=== PATIENT | male | born 1990 | race Caucasian/White ===

== ENCOUNTER 2023-03-02 09:53 | Emergency (ER) | payer SELFPAY ==
[~2023-03-02] VITALS: Ht 177.8 cm; Wt 78.0 kg
[2023-03-02 09:59] VITALS: TEMP 98.1; O2SAT 100
[2023-03-02] MEDS ORDERED: IBUPROFEN 400MG TABLET PO ONE (11:30)
[2023-03-02] MEDS ORDERED: T3 PO (11:31)
[2023-03-02] MEDS ORDERED: IBUP-2028 PO (11:31)
[2023-03-02 11:43] VITALS: BP 121/82; PULSE 91; RESP 16
== END 2023-03-02 11:44 | disposition home or self-care (01) ==
LOC: ER 09:53
DX: M79.605 Pain in left leg (principal)
CPT/HCPCS: 72170; 73552; 73560; 73590; 99284